=== PATIENT | male | born 1950 | race Caucasian/White ===

== ENCOUNTER 2024-10-12 10:45 | Inpatient (IN) | payer OTHER, SELFPAY ==
[2024-10-10 14:43] VITALS: BP 166/83
[2024-10-10 15:27] LABS: % Basophils 0.8 % (0-2); % Eosinophils 4.4 % (0-6); % Immature Granulocytes 0.3 % (0-0.5); % Lymphocytes 23.5 % (20.5-51.1); % Monocytes 9.6 % (1.7-9.3); % Neutrophils 61.4 % (42.2-75.2); Absolute Basophils 0.1 10^3/uL (0-0.2); Absolute Eosinophils 0.3 10^3/uL (0-0.7); Absolute Lymphocytes 1.8 10^3/uL (1.2-3.4); Absolute Monocytes 0.7 10^3/uL (0.1-0.6); Absolute Neutrophils 4.8 10^3/uL (1.4-6.5); Hematocrit 44.2 % (39.0-52.0); Hemoglobin 14.7 g/dL (13.0-18.0); Mean Corp Hgb Conc. 33.3 g/dL (33.0-37.0); Mean Corpuscular Hgb 32.5 pg (27.0-31.0); Mean Corpuscular Volume 97.6 fL (80.0-94.0); Mean Platelet Volume 9.8 fL (7.4-10.4); Nucleated Red Blood Cells % 0 % (-); Platelet Count 249 10^3/uL (130-400); Red Blood Cell Count 4.53 10^6/uL (4.70-6.10); Red Cell Dist. Width 13.6 % (11.5-14.5); White Blood Cell Count 7.7 10^3/uL (4.8-10.8)
[2024-10-10 15:48] LABS: ALT (SGPT) 31 U/L (0-50); AST (SGOT) 25 U/L (17-59); Albumin 4.2 g/dl (3.5-5.0); Alkaline Phosphatase 96 U/L (38-126); Blood Urea Nitrogen 18 mg/dl (9-20); Calcium 9.5 mg/dl (8.4-10.2); Carbon Dioxide 26 mmol/L (22-30); Chloride 102 mmol/L (98-107); Glucose 97 mg/dl (70-99); Potassium 4.5 mmol/L (3.5-5.1); Sodium 135 mmol/L (135-145); Total Bilirubin 0.8 mg/dl (0.2-1.3); Total Protein 6.9 g/dl (6.3-8.2); eGFR > 60.00
[2024-10-10 15:53] LABS: NT-proBNP 46.8 pg/ml; Troponin I < 0.012 ng/ml
[2024-10-10 17:27] VITALS: BMI 51.0
[2024-10-10 17:29] VITALS: BP 132/69
[2024-10-10 18:14] LABS: COVID-19 Antigen Negative (Negative)
[2024-10-10] MEDS: SOLU-CORTEF 200 MG IV (19:09)
[2024-10-10 19:11] VITALS: BP 148/69
[2024-10-10] MEDS: BENADRYL 50 MG IV (19:48)
[2024-10-10 20:00] VITALS: BP 150/74
[2024-10-10] MEDS: DUONEB 3 ML INH (22:17)
[2024-10-10 22:24] VITALS: BP 165/78
--- NOTE | 2024-10-10 22:35 | ED.GENMED ---
History of Present Illness
General
Chief Complaint: Breathing Problem
Source: patient and ambulance crew
Exam Limitations: none
Time Seen by Provider: 10/10/24 16:17
Nursing documentation reviewed up to this point in time: agreed with
History of Present Illness
History of Present Illness:
74-year-old male with a past medical history as noted presents to the ER from [facility] where he lives independently; presents for evaluation of shortness of breath. Patient reports that symptoms started about 3 weeks ago�he says that he what
he describes as 'norovirus in the flu at the same time.' He says that he had cough, fever, myalgias, shortness of breath associated with nausea, vomiting, diarrhea. No symptoms lasted for about a week. He apparently was negative for COVID and
flu. He says that most of those symptoms improved but shortness of breath and fatigue never resolved. Over the past week he has been trying to increase his activity level to see if this would help, today was walking around [facility] with his
rollator and could not walk more than a few steps without being severely winded and lightheaded. EMS activated to bring him to the hospital for assessment. He says he has not had any chest pain. He says cough has improved but not resolved. No
additional fevers. He denies any other complaints.
Review of Systems
Review of Systems
All Other Systems: ROS reviewed and negative except as documented in HPI and ROS
Constitutional: Reports fatigue; Denies fever or chills
EENT: Denies sore throat or runny nose
Respiratory: Reports cough and trouble breathing
Cardiac: Denies chest pain or palpitations
ABD/GI: Denies abdominal pain, nausea, vomiting or diarrhea
: Denies flank pain
Musculoskeletal: Denies edema, neck pain or back pain
Neurological: Reports dizzy; Denies headache
Phy Exam
Physical Exam
Physical Exam:
General: Awake, alert, oriented x3; no acute distress
Head: Normocephalic, atraumatic
Eyes: Conjunctiva normal
Throat: Airway intact, handling secretions
Neck: Trachea midline, no JVD
Lungs: Patient has been respiratory rate 16-20, pulse ox 94% on room air; scattered wheeze with diminished breath sounds at the lung bases
Heart: Regular rate and rhythm, no murmurs, gallops, or rubs
Abd: Soft, non distended, nontender
Neuro: No gross deficits
Extremities: No edema in extremities, warm and well-perfused
Scores
Heart Failure Risk
Heart Failure Risk Score: Not Applicable
Heart Score for Chest Pain Patients
STEMI patient?: Not applicable
Withdrawal Assessment of Alcohol
Withdrawal Assessment Completed?: Not applicable
Course
Orders/Labs/Results
Orders:
Orders
10/10/24 14:48
ECG [Electrocardiogram (*1)] Urgent
Reason for Study: Shortness of Breath
10/10/24 14:49
EKG- Treatment ONCE
10/10/24 15:09
Complete Blood Count/With Diff Urgent
Comprehensive Metabolic Panel Urgent
Pro-BNP [NT-proBNP] Urgent
Troponin I Urgent
10/10/24 15:13
CR Chest - 2 Views Urgent
Comment:
Reason For Exam: soob
10/10/24 17:38
COVID-19 Antigen Urgent
Source: Nasal Swab
Influenza A+B Rapid Molecular Urgent
CAROL Source: Nasal Swab
Specimen Description:
10/10/24 17:47
CT Chest PE Study Urgent
Comment:
Reason For Exam: worsening sob
10/10/24 18:23
Diphenhydramine [Benadryl] 50 mg IV NOW STA
Hydrocortisone Sod Succinate [Solu-Cortef] 200 mg IV NOW STA
10/10/24 22:08
Ipratropium/Albuterol Sulfate [Duoneb] 3 ml INH R NOW STA
10/10/24 22:33
Case Management Consult ONCE
Case Management Consult: Halfway Placement
Pt Eval And Treat Urgent
Activity Level: With Assistance
Abnormal Lab Results
10/10/24
15:09
RBC 4.53 L 10^6/uL
(4.70-6.10)
MCV 97.6 H fL
(80.0-94.0)
MCH 32.5 H pg
(27.0-31.0)
Absolute Monos (auto) 0.7 H 10^3/uL
(0.1-0.6)
Monocytes % 9.6 H %
(1.7-9.3)
10/10/24 15:09
10/10/24 15:09
Vital Signs
Initial and Last Documented VS:
Initial Vital Signs
Temp Pulse Resp BP Pulse Ox
36.9 C 60 16 166/83 98
10/10/24 14:43 10/10/24 14:43 10/10/24 14:43 10/10/24 14:43 10/10/24 14:43
Last Documented Vital Signs
Temp Pulse Resp BP Pulse Ox
36.9 C 55 13 150/74 94
10/10/24 14:43 10/10/24 20:30 10/10/24 20:30 10/10/24 20:00 10/10/24 20:15
MDM/Problems Addressed
Differential Diagnosis Includes:
Bronchitis, pneumonia, PE, CHF
MDM/Problems Addressed:
74-year-old male presents for evaluation of increased shortness of breath and dizziness worsening over the past few weeks in the setting of recent viral syndrome as described above. Vitals and exam as above. Labs sent off including a CBC which
showed no anemia or other clinically significant abnormalities. CMP unremarkable. Troponin undetectable and proBNP not elevated. COVID and flu are negative today. Chest x-ray showed no acute disease on my independent review. Patient was sent
for a CTA chest which showed no PE or any other acute pathology. EKG shows sinus rhythm with left bundle branch block unchanged from prior. Suspect likely acute bronchitis and I suspect some element of physical deconditioning as well in the
setting of recent severe viral syndrome. Currently lives independently in the community will need PT, case management assessment as he says he cannot get around with his current degree of symptoms. He was given steroids here to prep for CTA added
nebs as well with minimal improvement. Will admit to the hospital for continued monitoring and case management/PT as above. Case discussed with hospitalist.
Chronic conditions affecting care:
Obesity
*Radiology
Radiology exam reviewed: preliminary read by ED provider and radiology read reviewed
*Pulse Oximetry
Patient hypoxic: no
*EKG
Interpreted by ED Provider?: Yes
Heart Rate: 59
Rate: bradycardiac
Rhythm: sinus
Maysel: normal axis
Interval: normal interval
QRS Pattern: left bundle branch block
Ischemia: no ischemia
*Critical Care Note
Total Time (30-74mins, 75-104mins- exclusive of procedures): Not Applicable
Data Reviewed
Review of Other/Old Records Reveals: Labs and Records
Source: patient and records
Patient Management
Social determinants of health affecting care: Living situation
Discussion with other providers: Hospitalist (Discussed with hospitalist)
Escalation/DeEscalation of care consider admission/obs:
Admission indicated
ED Attending Note
-
Portions of this chart may have been created with voice recognition software.� Occasional wrong word or��sound alike� substitutions may have occurred due to the inherent limitations of voice recognition software.
Discharge Plan
Departure
Patient Disposition: Admit
Date of Disposition: 10/10/24
Time of Disposition: 22:31
Admit to doctor: Artem
Presentation/result/management discussed w/ accepting MD/DO: Hospitalist
Discharge Problem:
Acute bronchitis
Prescriptions:
No Action
omega 1-zrq-hcf-fish oil [Fish Oil] 1,200 (144-216) mg Capsule
3 cap PO DAILY
atorvastatin 20 mg Tablet
20 mg PO Q4D
tamsulosin 0.4 mg Capsule
0.4 mg PO HS
levothyroxine 50 mcg Tablet
50 mcg PO 0400
timolol maleate (PF) 0.5 % Dropperette
1 drp OPHTHALMIC (EYE) BID
Rx Instructions:
BOTH eyes
latanoprost (PF) 0.005 % Drops
1 drp OPHTHALMIC (EYE) QPM
Rx Instructions:
Both eyes
naproxen 500 mg Tablet
500 mg PO PRN PRN (Reason: pain)
sulfamethoxazole-trimethoprim [Bactrim DS] 800-160 mg tablet
1 tab PO BID Qty: 10 0RF
Rx Instructions:
1 po bid [facility]
Referrals:
Zay Plata MD [Family Provider] -
Interventions
Interventions:
*General Assessment Last Done: 10/10/24 17:39
*ED COVID-19 Vaccine History Last Done: 10/10/24 17:39
ED- Cardiac Assessment Last Done: 10/10/24 17:40
ED- Pulmonary Assessment Last Done: 10/10/24 17:40
Discharge Date and Time
Print Language: OCCITAN
--- NOTE | 2024-10-10 23:00 | HPS.HSE ---
Addendum entered and electronically signed by Alize Luciano MD 10/10/24 23:16:
Did not improve with Duoneb and Steroid so may be component of physical deconditioning. PT/case management.
Original Note:
Family Physician
-
Family Physician: Zay Plata
Chief Complaint
-
shortness of breath
History of Present Illness
74-year-old male past medical history of bladder wall malignancy, hypogonadism, hyperlipidemia, BPH, hypothyroidism, presenting for shortness of breath. 3 weeks ago he had what he describes as 'norovirus and the flu at the same time.' He had
cough, fever, myalgias, shortness of breath with nausea and vomiting and diarrhea. Symptoms lasted for a week. Was negative for COVID and flu. Mostly symptoms improved but shortness of rhythm fatigue never resolved. He was treated with only
cough medicine. Over the past week he has been trying to increase his activity and was walking on [place] with his rollator and could not walk more than a few steps without being severely winded and lightheaded. EMS brought him to the
hospital. He denies chest pain. Cough is improved but not completely resolved. Denies fever but has some chills.
Medical History
Past Medical History
Past Medical History: Reports Other (bladder wall malignancy, hypogonadism, hyperlipidemia, BPH, hypothyroidism)
Past Surgical History: Reports None
Social History
Tobacco: Former Smoker
Alcohol: None
Drug: None
Family History
Family History: Not pertinent
Allergies / Home Medications
Allergies reflects when Allergies were last updated in [employer].
Home Medications with original date entered in [employer]
Allergy/Medication List:
Allergies
Allergy/AdvReac Type Severity Reaction Status Date / Time
alcohol Allergy BEER-GI Verified 10/10/24 14:48
UPSET
cat dander Allergy nasal Verified 10/10/24 14:48
congestion
cheese Allergy PARMESAN Verified 10/10/24 14:48
CHEESE-GI
upset
house dust Allergy nasal Verified 10/10/24 14:48
congestion
Iodinated Contrast Media Allergy Nausea / Verified 10/10/24 14:48
Vomiting
latex Allergy Rash/ITCHIN Verified 10/10/24 14:48
G
onion Allergy GI upset Verified 10/10/24 14:48
ragweed pollen Allergy nasal Verified 10/10/24 14:48
congestion
Home Medications
atorvastatin 20 mg tablet 20 mg PO Q4D 05/23/22
levothyroxine 50 mcg tablet 50 mcg PO DAILY@0400 05/23/22
naproxen 500 mg tablet 500 mg PO DAILYPRN PRN arthritis pain 05/23/22
omega 7-yov-jtw-fish oil 1,200 mg (144 mg-216 mg) capsule (Fish Oil) 3 cap PO DAILY 05/23/22
tamsulosin 0.4 mg capsule 0.4 mg PO HS 05/23/22
timolol maleate (PF) 0.5 % eye drops in a dropperette 1 drp BOTH EYES BID 05/23/22
clotrimazole-betamethasone 1 %-0.05 % topical cream 1 applic topical BID 10/10/24
latanoprost 0.005 % eye drops 1 drp BOTH EYES HS 10/10/24
magnesium oxide 500 mg PO DAILYPRN PRN leg cramps 10/10/24
sennosides 8.6 mg tablet (senna) 8.6 mg PO HS 10/10/24
therapeutic multivitamin 1 tab PO DAILY 10/10/24
Review of Systems
-
History Source: Patient
A 12 point ROS was completed and negative except as noted: Yes
Constitutional: Reports No Symptoms
EENT: Reports No Symptoms
Respiratory: Reports See HPI
Cardiac: Reports No Symptoms
Abdomen/GI: Reports No Symptoms
: Reports No Symptoms
Musculoskeletal: Reports No Symptoms
Skin: Reports No Symptoms
Neurological: Reports No Symptoms
Endocrine: Reports No Symptoms
Hematologic/Lymphatic: Reports No Symptoms
Psych: Reports No Symptoms
Physical Exam
Vital Signs
Vital Signs
Temp Pulse Resp BP Pulse Ox
98.4 F 55 13 150/74 94
10/10/24 14:43 10/10/24 20:30 10/10/24 20:30 10/10/24 20:00 10/10/24 20:15
Physical Exam
General: Well Developed, Well Nourished and No Apparent Distress
HEENT: NormoCephalic, Moist mucous membranes and Atraumatic
Respiratory: Wheezes
Cardiac: S1/S2 and Regular Rhythm; No Murmur or Rub
GI: Soft, Non Tender, Non Distended and Normal Bowel Sounds; No Organomegaly
Rectal: Deferred by Provider
Musculoskeletal: No Clubbing, No Cyanosis and No Edema
Skin: No Rash
Neuro: Nonfocal/grossly intact
Laboratory Results
-
10/10/24 15:09
10/10/24 15:09
Laboratory Results
Total Bilirubin 0.8 mg/dl (0.2-1.3) 10/10/24 15:09
AST 25 U/L (17-59) 10/10/24 15:09
ALT 31 U/L (0-50) 10/10/24 15:09
Alkaline Phosphatase 96 U/L (38-126) 10/10/24 15:09
Troponin I < 0.012 ng/ml 10/10/24 15:09
Data Reviewed
-
Lab Data: Labs Reviewed by me
Old Records: Reviewed
Impression/Plan
-
IMPRESSION:
PLAN:
# Acute bronchitis after recent URI
-Slight wheezing bilaterally
-Chest x-ray negative
-CT PE negative
-DuoNebs every 6 hours
-Dexamethasone 4 mg every 12
History of bladder wall malignancy status post resection
Hypogonadism
-Previously on testosterone
Hypothyroidism
-Continue levothyroxine
BPH
-Continue tamsulosin
Hyperlipidemia
-Continue statin
Arthritis
-Continue naproxen
Obesity
Former smoker
Full code
DVT prophylaxis�heparin
Regular diet
[2024-10-11] VITALS (7 sets, daily range): BP systolic 149–170; BP diastolic 68–85; PULSE 60–74; O2SAT 95; BMI 50.0; BMI 49.9
[2024-10-11] MEDS: DECADRON 4 MG IV ×3 (00:53→23:07)
[2024-10-11] MEDS: XALATAN OPHTHALMIC SOLUTION 1 DROP BOTH EYES ×2 (01:19→21:01)
[2024-10-11] MEDS: SYNTHROID 50 MCG PO (05:18)
[2024-10-11] MEDS: DUONEB 3 ML INH ×4 (07:34→19:28)
[2024-10-11 07:39] LABS: % Basophils 0.1 % (0-2); % Immature Granulocytes 0.3 % (0-0.5); % Lymphocytes 8.8 % (20.5-51.1); % Monocytes 1.3 % (1.7-9.3); % Neutrophils 89.5 % (42.2-75.2); Absolute Lymphocytes 0.6 10^3/uL (1.2-3.4); Absolute Monocytes 0.1 10^3/uL (0.1-0.6); Hematocrit 45.1 % (39.0-52.0); Hemoglobin 15.1 g/dL (13.0-18.0); Mean Corp Hgb Conc. 33.5 g/dL (33.0-37.0); Mean Corpuscular Hgb 32.2 pg (27.0-31.0); Mean Corpuscular Volume 96.2 fL (80.0-94.0); Mean Platelet Volume 9.8 fL (7.4-10.4); Nucleated Red Blood Cells % 0 % (-); Platelet Count 243 10^3/uL (130-400); Red Blood Cell Count 4.69 10^6/uL (4.70-6.10); Red Cell Dist. Width 13.6 % (11.5-14.5); White Blood Cell Count 6.7 10^3/uL (4.8-10.8)
[2024-10-11 08:11] LABS: ALT (SGPT) 31 U/L (0-50); AST (SGOT) 26 U/L (17-59); Albumin 4.4 g/dl (3.5-5.0); Alkaline Phosphatase 86 U/L (38-126); Blood Urea Nitrogen 14 mg/dl (9-20); Calcium 9.7 mg/dl (8.4-10.2); Carbon Dioxide 21 mmol/L (22-30); Chloride 103 mmol/L (98-107); Estimated Creatinine Clearance > 125 ml/min; Glucose 162 mg/dl (70-99); Potassium 4.6 mmol/L (3.5-5.1); Sodium 136 mmol/L (135-145); Total Bilirubin 0.8 mg/dl (0.2-1.3); Total Protein 7.2 g/dl (6.3-8.2); eGFR > 60.00
[2024-10-11] MEDS: HEPARIN 5000 UNITS SC ×2 (08:19→21:00)
[2024-10-11] MEDS: LIPITOR 20 MG PO (08:19)
[2024-10-11] MEDS: THERAGRAN 1 TABLET PO (08:19)
[2024-10-11] MEDS: TIMOPTIC 0.5% OPHTHALMIC SOLUTION 1 DROP BOTH EYES ×2 (08:19→16:12)
--- NOTE | 2024-10-11 08:52 | W.PN.HOSP.TC ---
Today's Communication/Plan
-
IV steroids. Incentive spirometer. PT OT.
Assessment / Plan
Assessment / Plan
Physical exam:
General: Well Developed, Well Nourished and No Apparent Distress
HEENT: Normocephalic, Atraumatic and Moist Mucous Membranes
Respiratory: Clear to Auscultation; Negative Wheezes, Rales or Rhonchi
Cardiac: Regular Rhythm and S1/S2
GI: Soft, Nontender and Nondistended
Musculoskeletal: No Clubbing, No Cyanosis and No Edema
Neuro: Awake, Alert and Oriented
Psych: Calm
A/P:
# Acute bronchitis after recent URI
-Chest x-ray negative
-CT PE negative
-DuoNebs every 6 hours
-Dexamethasone 4 mg every 12
-Add incentive spirometry
#Lightheadedness
PT OT
Check orthostatic
#Elevated blood pressure
No formal diagnosis of hypertension
Continue to monitor and if persistently elevated will start oral antihypertensives
Add IV hydralazine as needed
#Chronic LBBB
air sampling and monitoring
Normal troponin and BNP
Chest pain-free
History of bladder wall malignancy status post resection
Hypogonadism
-Previously on testosterone
-May need to retest as outpatient
Hypothyroidism
-Continue levothyroxine
BPH
-Continue tamsulosin
Hyperlipidemia
-Continue statin
Arthritis
-Continue naproxen
Obesity
Former smoker
Full code
DVT prophylaxis�heparin
Anticipated Discharge: 24 - 48 hours
Subjective/Interval History
-
Date of Service: October 11, 2024
Patient still feels lightheadedness on and off and some dyspnea on exertion associated with fatigue. Afebrile
Objective Data
-
Labs:
Laboratory Results
10/11/24
07:06
WBC 6.7
Hgb 15.1
Hct 45.1
Plt Count 243
Sodium 136
Potassium 4.6
Chloride 103
Carbon Dioxide 21 L
BUN 14
Creatinine 0.6 L
Glucose 162 H
Calcium 9.7
Total Bilirubin 0.8
AST 26
ALT 31
Alkaline Phosphatase 86
Vital Signs:
Vital Signs
Temp Pulse Resp BP Pulse Ox
97.5 F 71 18 154/85 92
10/11/24 08:15 10/11/24 08:15 10/11/24 08:15 10/11/24 08:15 10/11/24 08:15
I&O
10/10/24 10/11/24 10/12/24
06:59 06:59 06:59
Intake Total 240 / 240
Balance 240 / 240
--- NOTE | 2024-10-11 16:13 | CM ---
Pt seen bedside, initial assessment completed. Admitted for shortness of breath.
Pt lives alone at [facility]- independent living. Pt's apartment is located on 3rd floor, there is elevator access. Pt is independent w/ the use of a rollator, independent w/ ADLs. Pt states he has a cane that he will sometimes use when he does
not want to use his rollator due to its size.
Pt stated he has had several rehab experiences to include [facility] and [place]. Pt stated he was prev known to [facility] for home PT when he was living at [place] in the past.
Address, point of contact and insurance verified
PCP: Dr. Plata
Pharmacy: [facility]- Located at [facility]
Therapy evaluated pt and recommending OP therapy at d/c, pt is agreeable and will utilize [facility] OP staff. CM will request script from hospitalist.
Per pt, he stated he may go home tomorrow and will poss ask his sister to transport him.
Pt is currently admitted as OBS. SALAZAR form reviewed, pt given copy, copy placed on chart
Plan: Home w/ OP therapy
[2024-10-11] MEDS: SENOKOT 8.6 MG PO (17:00)
[2024-10-11] MEDS: FLOMAX 0.4 MG PO (21:01)
[2024-10-12] MEDS: SYNTHROID 50 MCG PO (04:23)
[2024-10-12] MEDS: DUONEB 3 ML INH ×2 (07:35→11:30)
[2024-10-12 07:43] VITALS: BP 179/85
[2024-10-12 07:44] VITALS: BP 170/85; BP 179/85; PULSE 60; PULSE 65
--- NOTE | 2024-10-12 08:50 | W.PN.HOSP.TC ---
Today's Communication/Plan
-
Discharge planning
Assessment / Plan
Assessment / Plan
Physical exam:
General: Well Developed, Well Nourished and No Apparent Distress
HEENT: Normocephalic, Atraumatic and Moist Mucous Membranes
Respiratory: Clear to Auscultation; Negative Wheezes, Rales or Rhonchi
Cardiac: Regular Rhythm and S1/S2
GI: Soft, Nontender and Nondistended
Musculoskeletal: No Clubbing, No Cyanosis and No Edema
Neuro: Awake, Alert and Oriented
Psych: Calm
A/P:
# Acute bronchitis after recent URI
-Chest x-ray negative
-CT PE negative
-DuoNebs every 6 hours
-Dexamethasone 4 mg every 12 switch to oral prednisone today
-Add incentive spirometry
-Plan to discharge today and will continue with oral tapering course of steroids along with some beta agonist inhaler and home health care for discharge
#Lightheadedness
PT OT
Check orthostatic
#Elevated blood pressure
No formal diagnosis of hypertension but I recommended low-dose amlodipine 2.5 mg daily but he is very hesitant on starting antihypertensives we will reevaluate as outpatient.
Continue to monitor and if persistently elevated will start oral antihypertensives
Add IV hydralazine as needed
#Chronic LBBB
panel monitor
Normal troponin and BNP
Chest pain-free
History of bladder wall malignancy status post resection
Hypogonadism
-Previously on testosterone
-May need to retest as outpatient
Hypothyroidism
-Continue levothyroxine
BPH
-Continue tamsulosin
Hyperlipidemia
-Continue statin
Arthritis
-Continue naproxen
Obesity
Former smoker
Full code
DVT prophylaxis�heparin
Anticipated Discharge: Today
Subjective/Interval History
-
Date of Service: October 12, 2024
Patient feels better today. He wants to go home
Objective Data
-
Labs:
Laboratory Results
10/12/24
07:13
Sodium Pending
Potassium Pending
Chloride Pending
Carbon Dioxide Pending
BUN Pending
Creatinine Pending
Glucose Pending
Calcium Pending
Vital Signs:
Vital Signs
Temp Pulse Resp BP Pulse Ox
97.9 F 87 18 169/85 95
10/11/24 23:12 10/12/24 07:35 10/12/24 07:35 10/11/24 15:46 10/12/24 07:35
I&O
10/11/24 10/12/24 10/13/24
06:59 06:59 06:59
Intake Total 240 / 240 1200 / 1200
Balance 240 / 240 1200 / 1200
[2024-10-12 08:58] LABS: Blood Urea Nitrogen 17 mg/dl (9-20); Calcium 9.8 mg/dl (8.4-10.2); Carbon Dioxide 20 mmol/L (22-30); Chloride 106 mmol/L (98-107); Estimated Creatinine Clearance > 125 ml/min; Glucose 148 mg/dl (70-99); Potassium 4.4 mmol/L (3.5-5.1); Sodium 137 mmol/L (135-145); eGFR > 60.00
[2024-10-12] MEDS: HEPARIN 5000 UNITS SC (09:57)
[2024-10-12] MEDS: THERAGRAN 1 TABLET PO (09:57)
[2024-10-12] MEDS: DELTASONE 40 MG PO (09:57)
[2024-10-12] MEDS: TIMOPTIC 0.5% OPHTHALMIC SOLUTION 1 DROP BOTH EYES (09:58)
[2024-10-12 12:00] VITALS: BP 158/59
--- NOTE | 2024-10-12 13:50 | W.DCSUMMARY ---
Discharge Summary
Discharge Data
Date of Admission: 10/12/24
Date of Discharge: 10/12/24
-
Pending Results: No
Hospital Course
Patient is 74 years old male came into the hospital with generalized malaise and lightheadedness. He appears to have postviral syndrome. Patient was placed on IV steroids as well as supportive care and was monitored in the hospital. Patient
symptoms improved. He participated in PT and OT. His blood pressure was mildly elevated but he did not want to start any antihypertensives and will follow-up with PCP with blood pressure readings as outpatient. Otherwise, patient is stable to be
discharged today. No other events were noticed.
Discharge Plan
-
Patient Disposition: Home (Routine Discharge)
Discharge Diagnosis/Procedures: Acute bronchitis. Postinfectious cough.
Diet: Low Cholesterol
Activity: As tolerated
Blood Work: Please PCP to order CBC, BMP within 1 week
Referrals:
Zay Plata MD [Family Provider] - in less than 1 week
Prescriptions:
New
prednisone 10 mg Tablet
See Rx Instructions .ROUTE .COMPLEX Qty: 30 0RF
Rx Instructions:
Take By Mouth:
40 mg daily x3 days, 30 mg daily x3 days,
20 mg daily x3 days, 10 mg daily x3 days.
albuterol sulfate 90 mcg/actuation HFA aerosol inhaler
2 puff inhalation Q6H PRN (Reason: shortness of breath or wheezing) Qty: 6.7 0RF
Continued
omega 4-lou-mqc-fish oil [Fish Oil] 1,200 (144-216) mg Capsule
3 cap PO DAILY
atorvastatin 20 mg Tablet
20 mg PO Q4D
tamsulosin 0.4 mg Capsule
0.4 mg PO HS
levothyroxine 50 mcg Tablet
50 mcg PO DAILY@0400
timolol maleate (PF) 0.5 % Dropperette
1 drp BOTH EYES BID
naproxen 500 mg Tablet
500 mg PO DAILYPRN PRN (Reason: arthritis pain)
latanoprost 0.005 % Drops
1 drp BOTH EYES HS
sennosides [senna] 8.6 mg Tablet
8.6 mg PO HS
therapeutic multivitamin Tablet
1 tab PO DAILY
clotrimazole-betamethasone 1-0.05 % Cream
1 applic TOPICAL BID
magnesium oxide 500 mg magnesium Tablet
500 mg PO DAILYPRN PRN (Reason: leg cramps)
Discharge Orders:
Discharge Patient (As Directed); Ordered 10/12/24
Ordered By: Cresencio Rivera
Discharge Date and Time
Discharge Date/Time: 10/12/24 15:50
Print Language: [place] CITIZ[place]
--- NOTE | 2024-10-12 14:45 | CM ---
Pt stable for d/c today.
Pt agreeable to d/c today, his sister will transport him home. Pt will d/c w/ inhaler
Therapy rec OP therapy, pt will use OP therapy at [facility]. TT hospitalist for OP therapy script
IMM reviewed, copy on chart
Plan: Return to [facility]- Independent living
[2024-10-12] MEDS: DUONEB INH (15:25)
== END 2024-10-12 15:50 | disposition home or self-care (01) | DRG 202 ==
LOC: 4 EAST ACU 10:45
PROVIDERS: Emergency Medicine; ADMITTING PHYSICIAN Hospitalist; ATTENDING PHYSICIAN Hospitalist; EMERGENCY PHYSICIAN Emergency Medicine; FAMILY PHYSICIAN Internal Medicine Geriatric Medicine
DX: J20.9 Acute bronchitis, unspecified (principal); Z68.43 Body mass index [BMI] 50.0-59.9, adult; E29.1 Testicular hypofunction; E03.9 Hypothyroidism, unspecified; N40.0 Benign prostatic hyperplasia without lower urinary tract symptoms; E66.9 Obesity, unspecified; I44.7 Left bundle-branch block, unspecified; R03.0 Elevated blood-pressure reading, without diagnosis of hypertension; M19.90 Unspecified osteoarthritis, unspecified site; Z87.891 Personal history of nicotine dependence; Z11.52 Encounter for screening for COVID-19; Z85.51 Personal history of malignant neoplasm of bladder; Z79.890 Hormone replacement therapy; Z79.899 Other long term (current) drug therapy
CPT/HCPCS: 71046; 71275; 80048; 80053; 83036; 83880; 84484; 85025; 87070; 87147; 87502; 87811; 93005; 94640; 96374; 96375; 97116; 97162; 97166; 99285; Q9967

== ENCOUNTER → 2024-11-22 12:35 | Outpatient (REF) | payer OTHER, SELFPAY | LOC: RSP 12:35 | PROVIDERS: ATTENDING PHYSICIAN Internal Medicine Geriatric Medicine | DX: R06.09 Other forms of dyspnea (principal) | CPT/HCPCS: 94727; 94729; 94010 ==